=== PATIENT | female | born 1995 | race Caucasian/White ===

== ENCOUNTER 2020-03-14 10:40 | Emergency (ER) | payer OTHER, SELFPAY ==
--- NOTE | ~2020-03-14 | XR_ITS ---
EXAMINATION: XR knee RT min 4V EXAM DATE: 03/14/2020 11:09 INDICATION: Initial encounter following injury, with pain of the right knee. Fall. TECHNIQUE: Right knee frontal, crosstable lateral, orthogonal oblique projections for interpretation . Additional sunrise projection. There are no prior studies for comparison. FINDINGS: No evidence osteochondral defect or joint body in the right knee joint. No joint effusio n. There are no acute fractures or dislocations identified. There is no subcutaneous gas. The soft tissue is unremarkable. There are no radiopaque foreign bodies. IMPRESSION: No acute osseous findings. Reviewed, dictated and finalized at location A. [employer] IMPRESSION: No acute osseous findings.
--- NOTE | 2020-03-14 10:46 | ED.LOWEXIN ---
HPI - Extremity Injury (Lower) General Chief Complaint: Extremity Injury, Lower Stated Complaint: right knee pain fell Time Seen by Provider: 03/14/20 11:11 Source: patient and RN notes reviewed Mode of arrival: ambulatory Limitations: no limitations History of Present Illness HPI Narrative: 24-year-old female presents with concern for right knee pain. Reports yesterday she tripped and fell landing on her right knee on a concrete floor. Reports she has been using ibuprofen, ice, Seth wrap, elevation. Reports pain to light touch to the anterior knee. MD complaint: knee injury Related Data Home Medications Medication Instructions Recorded Confirmed escitalopram oxalate [Lexapro] 10 mg PO DAILY 03/14/20 03/14/20 Allergies Allergy/AdvReac Type Severity Reaction Status Date / Time No Known Allergies Allergy Verified 03/14/20 10:59 Review of Systems Review of Systems: Narrative: CONSTITUTIONAL: Denies malaise, chills, sweats, or fever. CARDIOVASCULAR: Denies chest pain, palpitations, or edema. RESPIRATORY: Denies cough or dyspnea. SKIN: Denies open skin MUSCULOSKELETAL: Reports right knee pain NEUROLOGIC: Denies numbness, weakness All systems reviewed & are unremarkable except as noted in HPI and below PMFSH Comments At time of signature, agree with nursing past medical, surgical, social and family history. There is no relevant family history pertinent to the presenting complaint Exam Narrative: Exam Narrative: GENERAL: Well-appearing, well-nourished, and in no acute distress. HEAD: Normocephalic, atraumatic. EYES: PERRLA, conjunctivae clear NECK: Supple. CHEST: Speaks in full sentences. No respiratory distress. HEART: Regular rate and rhythm. Normal and equal peripheral pulses. EXTREMITIES: Right knee has normal strength and sensation, normal range of motion. No edema or ecchymosis. 5/5 strength with [xxx] flexion and extension. Normal sensation with sensitivity to light touch and pain. Anterior tenderness. No open wounds, no skin tenting, no devitalized tissue or atrophy, no trophic changes, no obvious deformity, alignment normal, nearby joints and structures intact. Distal pulses palpable and equal bilaterally, skin warm, dry, pink. Capillary refill less than 3 seconds. SKIN: Warm, dry, no rash. NEURO: Alert and oriented x3. PSYCH: Normal mood and affect Course Course Emergency Course: Patient is aware of diagnosis, understands and agrees to treatment plan. Anticipatory guidance given. Patient agrees to follow-up as directed and is aware of reasons to seek care at the emergency department. Portions of this record may have been created with voice recognition software Vital Signs Vital signs: Vital Signs Temperature 98.9 F 03/14/20 10:55 Pulse Rate 91 03/14/20 10:55 Respiratory Rate 16 03/14/20 10:55 Blood Pressure 150/87 H 03/14/20 10:55 Pulse Oximetry 99 03/14/20 10:55 Temperature 98.9 F 03/14/20 10:55 Pulse Rate 91 03/14/20 10:55 Respiratory Rate 16 03/14/20 10:55 Blood Pressure 150/87 H 03/14/20 10:55 Pulse Oximetry 99 03/14/20 10:55 Reviewed. Patient has been instructed to follow up with her primary care provider within the next week regarding her elevated blood pressure today. MDM - Extremity Injury (Lower) MDM Narrative Medical decision making narrative: Patients injury and pain is consistent with musculoskeletal etiology. No signs of neurological or vascular compromise on exam. Compartments and tissues are soft without signs of compartment syndrome. Pain is felt appropriate for further evaluation on an outpatient basis. Imaging Data My impression: Images reviewed, interpreted by radiologist, agree, see report. Radiologist's impression: EXAMINATION: XR knee RT min 4V EXAM DATE: 03/14/2020 11:09 INDICATION: Initial encounter following injury, with pain of the right knee. Fall. TECHNIQUE: Right knee frontal, crosstable lateral, orthogonal oblique projections for
[2020-03-14 10:55] VITALS: BP 150/87; PULSE 91; RESP 16; TEMP 37.2; O2SAT 99
== END 2020-03-14 11:26 | disposition home or self-care (01) ==
PROVIDERS: Emergency Provider Nurse Practitioner
DX: S89.91XA Unspecified injury of right lower leg, initial encounter (principal); W01.0XXA Fall on same level from slipping, tripping and stumbling without subsequent striking against object, initial encounter; F41.9 Anxiety disorder, unspecified; F32.9 Major depressive disorder, single episode, unspecified
CPT/HCPCS: 73564; 99203; G0463